=== PATIENT | male | born 1990 | race Caucasian/White ===

== ENCOUNTER 2024-05-04 11:06 | Outpatient (CLI) | payer OTHER, SELFPAY ==
--- NOTE | ~2024-05-04 | MR_ITS ---
EXAMINATION: MR ankle RT wo con DATE: 05/04/2024 11:47 INDICATION: Posterior tibial tendinitis TECHNIQUE: Magnetic resonance imaging (MRI) of the right ankle was performed without intravenous cont rast. Sequences included sagittal, coronal, and axial proton-density weighted fast spin echo without and with fat saturation. COMPARISON: None. FINDINGS: Medial ankle ligaments: Deep and superficial deltoid ligaments as well as the spring ligament are normal. Lateral ankle ligaments: The anterior and posterior inferior tibiofibular ligaments are normal. The anterior talofibular, calc aneofibular and posterior talofibular ligaments are normal. Tendons: Achilles tendon is normal. The peroneus longus tendon is normal. There is mild peroneus brevis tendin opathy with longitudinal split tear occurring distal centered at the level of the peroneal trochlea. There is a low-lying peroneus brevis muscle belly which extends to 12 mm below the level of the tip o f the lateral malleolus. The tibialis anterior and extensor hallucis longus and extensor digitorum lo ngus tendons are normal. The tibialis posterior, flexor digitorum longus and flexor hallucis longus t endons are normal. Plantar fascia: Plantar aponeurosis is normal. Bones/other: Bone alignment is normal. No reactive edema, fracture or pathologic marrow replacing process. There i s disruption of the synchondrosis with trace amount of fluid extending between the posterior calcaneu s and an os trigonum. There is a ganglion cyst extending posteriorly from the posterior recess of the subtalar joint measuring 1.9 x 1.0 x 1.5 cm. There is minimal edema in [place] fat pad located slightl y cephalad to the ganglion cyst. Fluid: Otherwise physiologic amount of fluid in the joint spaces. No tenosynovitis, bursitis or other abnorm al fluid collections. IMPRESSION: 1. Mild peroneus brevis tendinopathy with small longitudinal split tear centered at the level of the peroneal trochlea. 2. 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 Reviewed, dictated and finalized at location B. [facility] [employer] IMPRESSION: 1. Mild peroneus brevis tendinopathy with small longitudinal split tear centere d at the level of the peroneal trochlea. 2. 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
== END 2024-05-04 11:07 | disposition home or self-care (01) ==
PROVIDERS: PCP Podiatrist Foot & Ankle Surgery; Visit Provider Podiatrist Foot & Ankle Surgery
DX: M76.821 Posterior tibial tendinitis, right leg (principal); M76.71 Peroneal tendinitis, right leg; S86.311A Strain of muscle(s) and tendon(s) of peroneal muscle group at lower leg level, right leg, initial encounter; X58.XXXA Exposure to other specified factors, initial encounter
CPT/HCPCS: 73721